=== PATIENT | male | born 1995 ===

== ENCOUNTER 2017-11-19 16:00 | Emergency (ER) | payer OTHER ==
[~2017-11-19] VITALS: Ht 188 cm; Wt 113.4 kg
[~2017-11-19 16:00] MED LIST: ATOM10 PO; CODACE30 PO; CODACEE120 PO; Cipro500 MG PO; IBUP600 PO; METPHE10; METPHE10 PO; METPHE5; MIGRAINE PILL; Norco 5-325 Ta1 EACH PO; Ultram50 MG PO; Veetids 500500 MG PO; Zofran Odt4 MG PO
[2017-11-19] MEDS ORDERED: Polytrim Eye Dr10 ML LEFTEYE (16:21)
== END 2017-11-19 16:34 | disposition home or self-care (01) ==
LOC: ER 16:00
DX: H00.024 Hordeolum internum left upper eyelid (principal); H10.9 Unspecified conjunctivitis
CPT/HCPCS: 99283

== ENCOUNTER 2024-02-27 02:29 | Emergency (ER) | payer OTHER ==
[~2024-02-27] VITALS: Ht 188 cm; Wt 124.7 kg
[~2024-02-27 02:29] MED LIST changes: +AMOX500 PO; +Polytrim Eye Dr10 ML LEFTEYE
[2024-02-27 03:40] VITALS: BP 149/72
== END 2024-02-27 03:40 | disposition home or self-care (01) ==
LOC: ER 02:29
DX: S76.011A Strain of muscle, fascia and tendon of right hip, initial encounter (principal); F17.210 Nicotine dependence, cigarettes, uncomplicated; X50.0XXA Overexertion from strenuous movement or load, initial encounter
CPT/HCPCS: 99283